=== PATIENT | female | born 1970 | race Caucasian/White ===

== ENCOUNTER 2017-04-13 13:22 | Emergency (ER) | payer MEDICARE, OTHER ==
[~2017-04-13] VITALS: Ht 152.4 cm; Wt 50.0 kg
[2017-04-13 13:36] VITALS: BP 143/81; PULSE 80; RESP 15; TEMP 98.3; O2SAT 99
--- NOTE | 2017-04-13 13:43 | PD ---
Physical Exam Time Seen by Provider: 13:43 Narrative 46 y/o female here for evaluation after a fall. Her rolling walker got caught on a chair and she fell. Vital signs reviewed. Seen at triage desk. Awaiting bed placement. Data Data Last Documented VS Vital Signs Date Time Temp Pulse Resp B/P Pulse Ox O2 Delivery O2 Flow Rate FiO2 04/13/17 13:36 98.3 80 15 143/81 99 MDM Medical Record Reviewed: Yes Supervised Visit with TOM: Bradley Oleary Apr 13, 2017 13:43
--- NOTE | 2017-04-13 14:40 | RADRPT ---
EXAM DATE/TIME: 04/13/2017 14:18 [facility] COMPARISON: No previous studies available for comparison. INDICATIONS : Right hip pain after fall. MEDICAL HISTORY : Cerebral Palsy. SURGICAL HISTORY : None. ENCOUNTER: Initial ACUITY: 1 day PAIN SCORE: 0/10 LOCATION: Right hip. FINDINGS: Examination of the right hip was performed with AP Pelvis. The primary and secondary trabecular mallory randee of the femoral neck is intact. The hip joint is of normal width without significant sclerosis or bony hypertrophy. The acetabulum is grossly intact. CONCLUSION: No acute fracture or joint dislocation. Clovis Vargas MD on April 13, 2017 at 14:37 Board Certified Radiologist. This report was verified electronically.
[2017-04-13] MEDS ORDERED: ACETAMINOPHEN 325 MG TAB PO ONE (14:45)
--- NOTE | 2017-04-13 14:52 | PD ---
HPI Chief Complaint: Fall Time Seen by Provider: 14:45 Travel History International Travel<30 days: No Contact w/Intl Traveler<30days: No Traveled to known affect area: No History of Present Illness HPI 46-year-old female, with mental illness, presents to emergency department with a veneer press operator from her facility. The patient had a fall earlier today. She was using her walker and apparently the wheel of the walker got stuck on a chair and she fell. She does have a small area of swelling to her left lateral upper orbit area. The veneer press operator does not know if she lost consciousness. Shop Coordinator states the patient has been complaining also that her right hip hurts when she walks. The patient has not vomited. According to the veneer press operator that the patient has been acting normally for her. The patient is allergic to penicillin. Symptoms are moderate in severity. No other modifying factors or associated signs and symptoms. PFSH Past Medical History ?: Not Social History Tobacco Use: No Allergies-Medications (Allergen,Severity, Reaction): Coded Allergies: No Known Allergies (Unverified , 04/13/17) Reported Meds & Prescriptions Reported Meds & Active Scripts Active Reported Omeprazole 20 Mg Tab 20 Mg PO DAILY Ranitidine (Ranitidine HCl) 150 Mg Tab 150 Mg PO DAILY Mirtazapine 30 Mg Tab 30 Mg PO HS Colace (Docusate Sodium) 100 Mg Capsule Benztropine (Benztropine Mesylate) 0.5 Mg Tab 1 Mg PO BID Risperidone 1 Mg Tab 1 Mg PO Q12HR Clonazepam 1 Mg Tab 1 Mg PO QID Review of Systems Except as stated in HPI: all other systems reviewed are Neg Physical Exam Exam Limitations: Clinical Condition Narrative GENERAL: Well-nourished, well-developed female patient, in no acute distress; SKIN: Warm and dry. HEAD: Atraumatic. Normocephalic. Small hematoma noted to the left eyebrow area. EYES: Pupils equal and round at 3 mm with brisk reaction. No scleral icterus. No injection or drainage. PERRLA. EOMI. Left lateral upper orbit with a small area of edema with a pinpoint speck of dried blood; tenderness on palpation. No raccoon eyes. ENT: Mucosa pink and moist. No erythema or exudates. No rhinorrhea. EARS: Bilateral pinnae and external canals appear within normal limits. Bilateral tympanic membranes without erythema, dullness or perforation. NECK: Trachea midline. CARDIOVASCULAR: Regular rate and rhythm. No murmur appreciated. RESPIRATORY: No accessory muscle use. Clear to auscultation. Breath sounds equal bilaterally. GASTROINTESTINAL: Abdomen soft, non-tender, nondistended. Positive bowel sounds. No hepato-splenomegaly, or palpable masses. No guarding. MUSCULOSKELETAL: Left hip with full range of motion and patient able to bear weight in the ER. Full range of motion of bilateral upper and lower extremities noted. No obvious deformities. No clubbing. No cyanosis. No edema. NEUROLOGICAL: Awake and alert. No obvious cranial nerve deficits. Motor grossly within normal limits. Normal speech. PSYCHIATRIC: Appropriate mood and affect; insight and judgment normal. Data Data Last Documented VS Vital Signs Date Time Temp Pulse Resp B/P Pulse Ox O2 Delivery O2 Flow Rate FiO2 04/13/17 16:22 18 04/13/17 13:36 98.3 80 143/[address] Brain W/O Iv Contrast(Rout) (04/13/17 ) Ct Facial Bones W/O Iv Cont (04/13/17 ) Hip, Uni(Ap&Lat) W Ap Pelvis (04/13/17 13:56) Acetaminophen (Tylenol) (04/13/17 14:45) MDM Medical Decision Making Medical Screen Exam Complete: Yes Emergency Medical Condition: Yes Medical Record Reviewed: Yes Differential Diagnosis Hip contusion, facial contusion, orbital fracture, closed head injury Narrative Course 46-year-old female, with mental disability, from [facility] home presents with a veneer press operator after a fall earlier today. She did hit her head and there was no witnesses to verify loss of consciousness. Shop Coordinator states the patient has been complaining of right hip pain also. CT head, CT facial bones ordered. Right hip with AP pelvis x-ray ordered. Tylenol administered in the ER. 1526: Right hip with AP Jimy x-ray concludes: Last 24 hours Impressions Hip and Pelvis X-Ray 04/13/17 1356 Signed Impressions: Service Date/Time: Thursday, April 13, 2017 14:18 - CONCLUSION: No acute fracture or joint dislocation. Clovis Vargas MD 1315: Head CT and facial bone CT with no acute findings. Instructed caregiver to have patient follow up with primary care provider. Caregiver verbalizes understanding and agreement with treatment plan. Patient is medically cleared and stable for discharge. Discussed reasons to return to the emergency department. Caregiver agrees with treatment plan. The patients vital signs are stable and the patient is stable for outpatient follow-up and treatment. Patient discharged home, stable and in no acute distress. Diagnosis Primary Impression: Fall Qualified Code: W19.XXXA - Fall, initial encounter Additional Impressions: Right hip pain Contusion of face Qualified Code: S00.83XA - Contusion of face, initial encounter Referrals: Primary Care Physician Patient Instructions: Facial Contusion (ED), Fall Prevention (ED), General Instructions, Head Injury (ED), Hip Pain (ED) Additional Instructions: The patient did not receive her 3 PM Klonopin in the ER The patient was administered Tylenol 650 mg in the ER at approximately 3 PM Continue Tylenol or ibuprofen as directed and as needed for pain Follow up with primary care provider Return to the emergency department immediately with worsening of symptoms Med/Other Pt SpecificInfo: No Meds Exist/No RX given Disposition: 01 DISCHARGE HOME Condition: Stable Mechelle Sales Apr 13, 2017 14:52
[2017-04-13] MEDS ORDERED: BENZ0.5T PO (15:29)
[2017-04-13] MEDS ORDERED: MIRT30TA PO (15:29)
[2017-04-13] MEDS ORDERED: OMEP20TA PO (15:29)
[2017-04-13] MEDS ORDERED: RANI150T PO (15:29)
[2017-04-13] MEDS ORDERED: RISP1TAB2 PO (15:29)
[2017-04-13] MEDS ORDERED: COLA100C (15:29)
[2017-04-13] MEDS ORDERED: CLON1TAB PO (15:29)
[2017-04-13 16:22] VITALS: RESP 18
--- NOTE | 2017-04-13 16:36 | RADRPT ---
EXAM DATE/TIME: 04/13/2017 16:18 [facility] COMPARISON: No previous studies available for comparison. INDICATIONS : Patient tripped and fall today. RADIATION DOSE: 37.89 CTDIvol (mGy) MEDICAL HISTORY : None SURGICAL HISTORY : None. ENCOUNTER: Initial ACUITY: 1 day PAIN SCALE: 7/10 LOCATION: Left upper facial above orbits. TECHNIQUE: Multiple contiguous axial images were obtained of the head. Using automated exposure control and adj ustment of the mA and/or kV according to patient size, radiation dose was kept as low as reasonably a chievable to obtain optimal diagnostic quality images. DICOM format image data is available electro nically for review and comparison. FINDINGS: CEREBRUM: The ventricles are normal for age. No evidence of midline shift, mass lesion, hemorrhage or acute in farction. No extra-axial fluid collections are seen. POSTERIOR FOSSA: The cerebellum and brainstem are intact. The 4th ventricle is midline. The cerebellopontine angle i s unremarkable. EXTRACRANIAL: The visualized portion of the orbits is intact. SKULL: The calvaria is intact. No evidence of skull fracture. CONCLUSION: Normal examination. Mario Delgado MD on April 13, 2017 at 16:31 Board Certified Radiologist. This report was verified electronically.
--- NOTE | 2017-04-13 16:45 | RADRPT ---
EXAM DATE/TIME: 04/13/2017 16:18 [facility] COMPARISON: No previous studies available for comparison. INDICATIONS : Patient tripped and fall today. RADIATION DOSE: 61.84 CTDIvol (mGy) MEDICAL HISTORY : None SURGICAL HISTORY : None. ENCOUNTER: Initial ACUITY: 1 day PAIN SCORE: 5/10 LOCATION: Left upper eye. TECHNIQUE: Volumetric scanning of the facial bones was performed. Using automated exposure control and adjustme nt of the mA and/or kV according to patient size, radiation dose was kept as low as reasonably achiev able to obtain optimal diagnostic quality images. DICOM format image data is available [facility] y for review and comparison. FINDINGS: ORBITS: The orbital and infraorbital osseous structures are intact. The retroconal structures have a normal configuration. No radiopaque foreign bodies are seen. NASAL BONE: The nasal bone and maxillary spine are intact ZYGOMATIC ARCHES: Symmetric without evidence of fracture. SINUSES: The maxillary, ethmoid and frontal sinuses are intact. No air-fluid levels seen. NASAL CAVITY: The nasal septum is intact and midline. The lacrimal ducts are intact. SOFT TISSUES: No radiopaque foreign bodies seen. No soft-tissue swelling is seen. INTRACRANIAL: No intracranial air seen. CRIBIFORM PLATE: Grossly intact. CONCLUSION: 1. No acute findings. Mario Delgado MD on April 13, 2017 at 16:40 Board Certified Radiologist. This report was verified electronically.
== END 2017-04-13 17:14 | disposition home or self-care (01) ==
LOC: NEPK 13:22
DX: S00.83XA Contusion of other part of head, initial encounter (principal); M25.551 Pain in right hip; W19.XXXA Unspecified fall, initial encounter; Y92.199 Unspecified place in other specified residential institution as the place of occurrence of the external cause
CPT/HCPCS: 70450; 70486; 73502

== ENCOUNTER 2017-10-04 15:17 | Emergency (ER) | payer MEDICARE, OTHER ==
[~2017-10-04] VITALS: Ht 154.9 cm; Wt 47.3 kg
[~2017-10-04 15:17] MED LIST: BENZ0.5T PO; CLON1TAB PO; COLA100C5; MIRT30TA PO; OMEP20TA93 PO; RANI150T PO; RISP1TAB2 PO
[2017-10-04 15:18] VITALS: BP 129/77; PULSE 77; RESP 16; TEMP 97.5; O2SAT 99
[2017-10-04 15:59] LABS: AUTOMATED NEUTROPHIL # 3.1 TH/MM3 (1.8-7.7); BASOPHIL % 0.3 % (0.0-2.0); EOSINOPHIL # 0.1 TH/MM3 (0-0.4); EOSINOPHIL % 1.4 % (0.0-4.0); HEMATOCRIT 40.2 % (35.0-46.0); HEMOGLOBIN 13.9 GM/DL (11.6-15.3); LYMPH % 34.5 % (9.0-44.0); LYMPHOCYTE # 1.8 TH/MM3 (1.0-4.8); MEAN CELL VOLUME 91.1 FL (80.0-100.0); MEAN CORPUSCULAR HEMOGLOBIN 31.5 PG (27.0-34.0); MEAN CORPUSCULAR HGB CONC 34.5 % (32.0-36.0); MEAN PLATELET VOLUME 8.3 FL (7.0-11.0); MONO % 6.2 % (0.0-8.0); MONOCYTE # 0.3 TH/MM3 (0-0.9); NEUT % 57.6 % (16.0-70.0); PLATELET COUNT 213 TH/MM3 (150-450); RED BLOOD COUNT 4.42 MIL/MM3 (4.00-5.30); RED CELL DISTRIBUTION WIDTH 12.4 % (11.6-17.2); WHITE BLOOD COUNT 5.3 TH/MM3 (4.0-11.0)
[2017-10-04 16:19] LABS: ALBUMIN 4.2 GM/DL (3.4-5.0); AST (GOT) 23 U/L (15-37); BICARBONATE 27.8 MEQ/L (21.0-32.0); BLOOD UREA NITROGEN 10 MG/DL (7-18); CALCIUM 9.7 MG/DL (8.5-10.1); CHLORIDE 106 MEQ/L (98-107); CREATININE 0.68 MG/DL (0.50-1.00); GLOMERULAR FILTRATION RATE 92 ML/MIN (>89); GLUCOSE,RANDOM 80 MG/DL (74-106); SODIUM (NA) 142 MEQ/L (136-145)
[2017-10-04 16:30] LABS: ALKALINE PHOSPHATASE 140 U/L (45-117); ALT (GPT) 30 U/L (10-53); TOTAL BILIRUBIN ADULT 0.3 MG/DL (0.2-1.0); TOTAL PROTEIN 8.5 GM/DL (6.4-8.2)
--- NOTE | 2017-10-04 18:11 | PD ---
HPI Chief Complaint: Psychiatric Symptoms Time Seen by Provider: 17:55 Travel History International Travel<30 days: No Contact w/Intl Traveler<30days: No Traveled to known affect area: No History of Present Illness HPI The patient was seen and examined in the presence of the nurse. This patient is brought in by the head of the snf where she lives. She has history of cerebral palsy and cannot provide any history or review of systems. For the last 2 months she has had intermittent explosive behavior. She will strike out at staff or roommate. She will scream and kick. However, right now she is calm and resting comfortably in the bed. She was taken to her psychiatrist to prescribe Depakote. Does not seem to be helping. No alleviating factors. No exacerbating factors. No head injury or fever. Symptom severity is moderate. She also saw her neurologist who did a trial of muscle relaxant but that did not seem to help either PFSH Past Medical History Medical History: Unable to Obtain Diminished Hearing: No ?: Not Past Surgical History Surgical History: Unable to Obtain Social History Alcohol Use: No Tobacco Use: No Substance Use: No Allergies-Medications (Allergen,Severity, Reaction): Coded Allergies: No Known Allergies (Unverified , 04/13/17) Reported Meds & Prescriptions Reported Meds & Active Scripts Active Reported Calcium 600 with Vitamin D (Calcium Carbonate-Cholecalciferol) 600-400 mg-Unit Tab 1 Tab PO DAILY Chlorhexidine Gluconate (Mouth) Liq (Chlorhexidine Gluconate) 0.12% Soln 15 Ml SWISH-SPIT BID Hyoscyamine (Hyoscyamine Sulfate) 0.125 Mg Tab 0.125 Mg PO DAILY Azithromycin 250 Mg Tab 250 Mg PO BID Fluticasone Nasal Parker 50 Mcg/Act Naspr 80 Mcg EACH NARE BID 50 mcg/spray Claritin (Loratadine) 10 Mg Cap 10 Mg PO DAILY Divalproex DR (Divalproex Sodium) 250 Mg Tabdr 250 Mg PO BID Neosporin Wound Cleanser Topical (Benzalkonium Chloride) 0.13% Liqd 1 Applic TOPICAL DIRECTED PRN Tylenol (Acetaminophen) 325 Mg Tab 325 Mg PO Q6H PRN Multi-Vitamin Daily (Multiple Vitamin) 1 Tab Tab 1 Tab PO DAILY Omeprazole 20 Mg Tab 20 Mg PO DAILY Ranitidine (Ranitidine HCl) 150 Mg Tab 150 Mg PO DAILY Mirtazapine 30 Mg Tab 30 Mg PO HS Colace (Docusate Sodium) 100 Mg Capsule Benztropine (Benztropine Mesylate) 0.5 Mg Tab 1 Mg PO BID Risperidone 1 Mg Tab 1 Mg PO Q12HR Clonazepam 1 Mg Tab 1 Mg PO QID Review of Systems General / Constitutional: No: Fever Eyes: No: Visual changes HENT: No: Headaches Cardiovascular: No: Chest Pain or Discomfort Respiratory: No: Shortness of Breath Gastrointestinal: No: Abdominal Pain Genitourinary: No: Dysuria Musculoskeletal: Positive: Weakness, No: Pain Skin: No Rash Neurologic: Positive: Weakness, Ataxia Psychiatric: Positive: Disorder of Thought, No: Depression Endocrine: No: Polydipsia Hematologic/Lymphatic: No: Easy Bruising Physical Exam Narrative GENERAL: Well-nourished, well-developed patient with cerebral palsy features. SKIN: Focused skin assessment reveals no rash and nodules. Skin is Warm and dry. HEAD: Atraumatic. Normocephalic. EYES: Pupils equal and round. No scleral icterus. No injection or drainage. ENT: No nasal bleeding or discharge. Mucous membranes pink and moist. NECK: Trachea midline. No JVD. CARDIOVASCULAR: Regular rate and rhythm. No murmur appreciated. RESPIRATORY: No accessory muscle use. Clear to auscultation. Breath sounds equal bilaterally. GASTROINTESTINAL: Abdomen soft, non-tender, nondistended. Hepatic and splenic margins not palpable. MUSCULOSKELETAL: No obvious deformities. No clubbing. No cyanosis. No edema. NEUROLOGICAL: Awake and alert. No obvious cranial nerve deficits. Motor and sensory exams are challenging given her lack of participation. Not speaking PSYCHIATRIC: Appropriate mood and affect; insight and judgment reduced. She is calm and relaxed. Data Data Last Documented VS Vital Signs Date Time Temp Pulse Resp B/P (MAP) Pulse Ox O2 Delivery O2 Flow Rate FiO2 10/04/17 20:02 81 20 126/80 (95) 100 Room Air 10/04/17 15:18 97.5 Orders Orders Complete Blood Count With Diff (10/04/17 15:22) Comprehensive Metabolic Panel (10/04/17 15:22) Thyroid Stimulating Hormone (10/04/17 15:22) Drug Screen, Random Urine (10/04/17 15:22) Alcohol (Ethanol) (10/04/17 15:22) Urinalysis - C+S If Indicated (10/04/17 15:22) Valproic Acid (Depakene) (10/04/17 15:23) Beta Hcg (Quant/Titer) (10/04/17 18:11) Labs Laboratory Tests Test 10/04/17 15:47 White Blood Count 5.3 TH/MM3 Red Blood Count 4.42 MIL/MM3 Hemoglobin 13.9 GM/DL Hematocrit 40.2 % Mean Corpuscular Volume 91.1 FL Mean Corpuscular Hemoglobin 31.5 PG Mean Corpuscular Hemoglobin Concent 34.5 % Red Cell Distribution Width 12.4 % Platelet Count 213 TH/MM3 Mean Platelet Volume 8.3 FL Neutrophils (%) (Auto) 57.6 % Lymphocytes (%) (Auto) 34.5 % Monocytes (%) (Auto) 6.2 % Eosinophils (%) (Auto) 1.4 % Basophils (%) (Auto) 0.3 % Neutrophils # (Auto) 3.1 TH/MM3 Lymphocytes # (Auto) 1.8 TH/MM3 Monocytes # (Auto) 0.3 TH/MM3 Eosinophils # (Auto) 0.1 TH/MM3 Basophils # (Auto) 0.0 TH/MM3 CBC Comment DIFF FINAL Differential Comment Blood Urea Nitrogen 10 MG/DL Creatinine 0.68 MG/DL Random Glucose 80 MG/DL Total Protein 8.5 GM/DL Albumin 4.2 GM/DL Calcium Level 9.7 MG/DL Alkaline Phosphatase 140 U/L Aspartate Amino Transf (AST/SGOT) 23 U/L Alanine Aminotransferase (ALT/SGPT) 30 U/L Total Bilirubin 0.3 MG/DL Sodium Level 142 MEQ/L Potassium Level 3.8 MEQ/L Chloride Level 106 MEQ/L Carbon Dioxide Level 27.8 MEQ/L Anion Gap 8 MEQ/L Estimat Glomerular Filtration Rate 92 ML/MIN Thyroid Stimulating Hormone 3rd Gen 1.980 uIU/ML Human Chorionic Gonadotropin, Quant LESS THAN 1 MIU/ML Valproic Acid (Depakene) Level 59 MCG/ML Ethyl Alcohol Level LESS THAN 3 MG/DL MDM Medical Decision Making Medical Screen Exam Complete: Yes Emergency Medical Condition: Yes Medical Record Reviewed: Yes Differential Diagnosis Psychosis, behavioral outbursts, cerebral palsy flare Narrative Course I have reviewed the patient's electronic medical record. I have ordered a medical clearance workup CBC is normal Metabolic profile is normal LFTs are normal Depakote level is 59 Beta hCG is negative TSH is normal Alcohol is negative So unfortunately this patient had a psychiatric screen but psychiatry is not here in the building and not going to come in and evaluate her. She was told to come back in the morning for psychiatric evaluation or told she could weight- bear all night. Either option seem good to the alf ad terminal makeup operator. On her behalf I spoke with the psychiatrist Dr. Wells. But he would not come in to evaluate the patient. The patient is stable for outpatient follow-up at this time. She has been here 7 hours and not a single episode of aggressiveness or outburst. Diagnosis Primary Impression: Aggressive behavior of adult Additional Impression: Cerebral palsy Qualified Codes: G80.9 - Cerebral palsy, unspecified Additional Instructions: Psychiatry has recommended return in the morning for evaluation Med/Other Pt SpecificInfo: Other Disposition: 01 DISCHARGE HOME Condition: Stable Angus Smith MD Oct 04, 2017 18:11
[2017-10-04] MEDS ORDERED: HYOS1TAB9 PO (18:22)
[2017-10-04] MEDS ORDERED: CALC1TAB87 PO (18:22)
[2017-10-04] MEDS ORDERED: DIVA250T PO (18:22)
[2017-10-04] MEDS ORDERED: MULT-65 PO (18:22)
[2017-10-04] MEDS ORDERED: CHLO.12%30 SWISH-SPIT (18:22)
[2017-10-04] MEDS ORDERED: FLUT50SP EACH NARE (18:22)
[2017-10-04] MEDS ORDERED: TYLE325T PO (18:22)
[2017-10-04] MEDS ORDERED: NEOSLIQ TOPICAL (18:22)
[2017-10-04] MEDS ORDERED: AZIT250T3 PO (18:22)
[2017-10-04] MEDS ORDERED: CLAR10CA3 PO (18:22)
[2017-10-04 19:02] VITALS: BP 120/76; PULSE 79; RESP 18; O2SAT 100
[2017-10-04 20:02] VITALS: BP 126/80; PULSE 81; RESP 20; O2SAT 100
[2017-10-04 22:10] VITALS: BP 131/82
== END 2017-10-04 22:21 | disposition home or self-care (01) ==
LOC: NEPD 15:17
DX: F91.1 Conduct disorder, childhood-onset type (principal); G80.9 Cerebral palsy, unspecified; Z51.81 Encounter for therapeutic drug level monitoring
CPT/HCPCS: 80053; 80164; 80307; 84443; 84702; 85025; 99283